=== PATIENT | male | born 1940 | race Caucasian/White ===

== ENCOUNTER 2017-05-19 07:12 | Day surgery (SDC) | payer OTHER, BC ==
[~2017-05-19] VITALS: Ht 177.8 cm; Wt 95.3 kg
[~2017-05-19 07:12] MED LIST: APRESOLINE100 MG PO; ERGOCALCIF50000 UNIT PO; LASIX40 MG PO; LIVALO4 MG PO; LO-DOSE ASPIRIN81 M2 PO; LOPRESSOR50 MG PO; NABI650T PO; PLAVIX75 MG PO; PROCARDIA XL30 MG PO; ZYLOPRIM100 MG PO
[2017-05-19 07:49] VITALS: BP 128/60
[2017-05-19 08:17] LABS: HEMATOCRIT 41.1 % (38.0-50.0); HEMOGLOBIN 13.4 G/DL (12.5-16.6); MCH 31.2 PG (29.0-34.0); MCHC 32.6 G/DL (30.0-36.0); MCV 95.6 FL (86-99); PLATELET COUNT 177 K/uL (156-360); RBC DIS.WIDTH-CV 14.8 % (11.8-14.6); RBC DIS.WIDTH-SD 51.9 % (39-53); WHITE BLOOD COUNT 10.4 K/uL (4.1-10.2)
[2017-05-19 08:51] LABS: CHLORIDE 102 MEQ/L (99-109); CREATININE 4.4 MG/DL (0.6-1.3); GFR ESTIMATE (CALCULATED) 14 mL/min/ (58.99-99999); GLUCOSE 114 mg/dL (70-99); POTASSIUM 3.9 MEQ/L (3.7-5.4); SODIUM 138 MEQ/L (136-147); UREA NITROGEN (BUN) 44 mg/dL (9-23)
[2017-05-19 12:40] VITALS: BP 142/62
[2017-05-19 13:30] VITALS: BP 139/62
== END 2017-05-19 13:35 | disposition home or self-care (01) ==
LOC: SDC 07:12
PROVIDERS: Surgery
DX: I12.0 Hypertensive chronic kidney disease with stage 5 chronic kidney disease or end stage renal disease (principal); N18.6 End stage renal disease; Z99.2 Dependence on renal dialysis; Z87.891 Personal history of nicotine dependence; I25.10 Atherosclerotic heart disease of native coronary artery without angina pectoris; E78.00 Pure hypercholesterolemia, unspecified; Z86.73 Personal history of transient ischemic attack (TIA), and cerebral infarction without residual deficits; Z79.82 Long term (current) use of aspirin; Z79.02 Long term (current) use of antithrombotics/antiplatelets
CPT/HCPCS: 80048; 85027; 87641; J0690; J1100; J1170; J1644; J2250; J2405; J2720; S0020